=== PATIENT | male | born 1980 | race Caucasian/White ===

== ENCOUNTER 2018-08-18 17:04 | Emergency (ER) | payer SELFPAY ==
[2018-08-18 17:04] VITALS: BP 124/72; PULSE 79; RESP 14; TEMP 36.6; O2SAT 99; BMI 25.0
--- NOTE | 2018-08-18 17:38 | ED.VIS.GEN ---
History of Present Illness Chief Complaint: Dizziness Detail of Chief Complaint: Vertigo Informant: Patient, Family Onset: Today Context: Sudden Onset Timing: Intermittent Quality: Spinning Location: Worse with looking down Current Severity: - - Absent Maximum Severity: Severe Worsened by: Change in head position especially if he leans forward or looks down Relieved by: Remaining still and looking straight ahead Associated Symptoms: Nausea Narrative: Patient is a 37-year-old male who presents with vertigo. Onset 1 hour prior to presentation. The vertigo was positional and transient. It is associated with nausea. He denies headache, double vision, blurred vision or change in vision. He denies trouble with speech or swallowing. Denies paresthesia, anesthesia motors. He has no other complaints Past Medical History - Allergies and Home Meds Allergies/Adverse Reactions: Allergies No Known Allergies Allergy (Verified 08/18/18 17:06) Prior records reviewed: Yes Past Medical History: None Surgical History: no surgical history Lives: Spouse/ Significant Other Smoking Status: Never smoker Alcohol: None, Rare Review of Systems General: Denies: Chills, Fever, Sweats Eyes: Reports: - - There is no papilledema. Cup-to-disc ratio is normal.. Denies: Visual changes - bilaterally, Blurred Vision - bilaterally, Diplopia ENT: Reports: - - He denies tinnitus. Denies: Bilateral ear pain, Rhinorrhea, Sore throat Cardiovascular: Denies: Chest pain, Palpitations Respiratory: Denies: Dyspnea, Cough, Dyspnea on exertion Gastrointestinal: Reports: Nausea Genitourinary: Denies: Dysuria, Hematuria, Frequency Musculoskeletal: Denies: Back pain, Extremity Pain Skin: Denies: Rash, Wounds Neurological: Reports: - - Spending/vertigo Hematologic: Denies: Easy bruising, Easy bleeding Physical Exam Vital Signs/Narrative: Vital Signs Temp Pulse Resp BP Pulse Ox 08/18/18 17:04 97.9 F 79 14 124/72 H 99 Inital Vital Signs reviewed: Yes General: Well nourished, Well developed, No Acute Distress Head: Normocephalic, Atraumatic Eyes: Perrl, EOMI, - - There is no papilledema. Cup-to-disc ratio is normal. There is no nystagmus.. Negative for: Pale conjunctiva, Scleral icterus ENT: Moist mucous membranes, No rhinorrhea. Negative for: TM's clear Neck: Supple, Nontender, No lymphadenopathy, No JVD Cardiovascular: Regular rate, Regular rhythm, No murmurs, Normal S1, Normal S2 Respiratory: No distress, CTA bilaterally, Chest nontender Abdomen: Soft, Nontender, Nondistended, Normal bowel sounds Back: Nontender, Normal Inspection Extremities: Nontender, No edema Skin: Normal color, No rash Neurological: Alert, Oriented x3, Cranial nerves II-XII grossly intact, Normal Strength, Normal Sensation, Normal DTR, - - Finger to nose to finger was performed adequately. The Danika-Hallpike maneuver was negative. The eye askew test was negative. The hint test was negative. Having patient pushed right to left side exacerbate his symptoms. There was mild nystagmus noted. Psychological: Normal affect, Normal Mood Diagnostic/Tx/Re-eval - Medical Decision Making Patient history and physical exam are consistent with benign positional vertigo. Cher maneuver was performed. He had no symptoms with his head to the right or left. There was mild symptoms when he was upright with his neck flexed at 30 degrees. Will reassess in 5-10 minutes. Patient was reassessed at 1810. He still has minor symptoms even after administration of Valium. Plan is to discharge with prescription for Valium 2 mg 3 times daily. ED Disposition - Plan for ED Patient: Disposition: Home or Assisted Living Diagnosis: Benign paroxysmal positional vertigo Instructions: ED BPV Vertigo Prescriptions: Diazepam [Valium] 2 mg PO TID 3 Days #10 tab
[2018-08-18] MEDS: diazePAM 2 MG Tablet PO (18:24)
[2018-08-18 18:33] VITALS: BP 122/76; PULSE 74; RESP 18
== END 2018-08-18 18:34 | disposition home or self-care (01) ==
PROVIDERS: Emergency Provider Emergency Medicine
DX: H81.10 Benign paroxysmal vertigo, unspecified ear (principal)
CPT/HCPCS: 99283

== ENCOUNTER 2020-04-24 04:14 | Emergency (ER) | payer OTHER, SELFPAY ==
[2020-04-24 04:15] VITALS: BP 121/91; PULSE 71; RESP 16; TEMP 36.3; O2SAT 98; BMI 26.8
[2020-04-24] MEDS: Orphenadrine 60 MG/2 ML Ampul IM (04:46)
[2020-04-24] MEDS: Ketorolac 60 MG/2 ML Vial IM (04:46)
--- NOTE | 2020-04-24 04:54 | ED.DCSUM_ITS ---
- ER Visit Summary Date of Service: 04/24/20 Chief Complaint: Left-sided neck and shoulder pain History of Present Illness: The patient is a 39 M presenting with left-sided neck and shoulder pain. Patient states he woke up yesterday morning with pain in the left side of his neck that progressively worsened throughout the day. He states he injured the right side of his neck and shoulder at work last week. He tried ibuprofen and Valium at home. He continues to feel like he has spasm in the left side of his neck. Denies injury or fall. Denies numbness or weakness. Denies fever. Denies other complaints. Physical Examination: Vitals are stable. Patient is afebrile. Alert no acute distress. HEENT exam is unremarkable. Neck is supple. No midline tenderness. Left paraspinal cervical muscle tenderness Lungs are clear and equal bilaterally. Heart is regular rate and rhythm. Abdomen is soft nontender nondistended. Extremities left posterior shoulder tenderness with active full range of motion. Neurovascularly intact distally. Skin is warm and dry. No focal neurologic deficit. Normal strength and sensation Remainder of exam is unremarkable. Emergency Department Course and Treatment: Patient was given Norflex, Toradol IM with some improvement. He was then given OxyIR with improvement of his pain. He is given Dr. Webb biofuels operations manager for no doctor for follow-up. He is advised to follow-up with primary care physician. Advised to return to ED for worsening complaints. Disposition: Discharge home Impression: Neck strain This note was generated with [employer]isten dictation software. It may contain incorrect words, spelling, and punctuation that were not noted in review of the chart prior to signing ED Disposition - Plan for ED Patient: Instructions: ED Sprain Strain Neck Prescriptions: cycloBENZAPRine HCl [Flexeril] 10 mg PO TID PRN #20 tab PRN Reason: Muscle Spasm Prescription Printed Oxycodone HCl/Acetaminophen [Percocet 5/325] 1 tab PO Q6H PRN PRN 3 Days #12 tab PRN Reason: Pain Prescription Printed Referrals: Mickey Webb MD [NON-STAFF] -
[2020-04-24] MEDS: oxyCODONE 5 MG Tablet PO (05:47)
--- NOTE | 2020-04-24 06:32 | ED.DEP ---
ED Disposition - Plan for ED Patient: Instructions: ED Sprain Strain Neck Prescriptions: cycloBENZAPRine HCl [Flexeril] 10 mg PO TID PRN #20 tab PRN Reason: Muscle Spasm Prescription Printed Oxycodone HCl/Acetaminophen [Percocet 5/325] 1 tab PO Q6H PRN PRN 3 Days #12 tab PRN Reason: Pain Prescription Printed Referrals: Mickey Webb MD [NON-STAFF] -
== END 2020-04-24 06:42 | disposition home or self-care (01) ==
PROVIDERS: Emergency Provider Emergency Medicine
DX: S16.1XXA Strain of muscle, fascia and tendon at neck level, initial encounter (principal); X58.XXXA Exposure to other specified factors, initial encounter; Y93.9 Activity, unspecified; Y92.9 Unspecified place or not applicable; Y99.9 Unspecified external cause status; Z72.0 Tobacco use
CPT/HCPCS: 96372; 99283

== ENCOUNTER 2022-04-06 09:49 | Emergency (ER) | payer OTHER, SELFPAY ==
[2022-04-06 09:50] VITALS: BP 168/72; PULSE 103; RESP 18; TEMP 37.7; O2SAT 98; BMI 26.6
--- NOTE | 2022-04-06 10:37 | EDS_ITS ---
HPI History of Present Illness Chief Complaint: Fever Informant: patient Narrative Narrative: Third he 11-year-old male presenting to the emergency department with fever and headache. Patient states that he awoke last night at approximately 010 0 hours with body aches and shivering. Temperature up to 101. He had some dry heaves. He has developed a frontal headache described as a pressure pushing his eyes out. No dental pain. No rhinorrhea or cough. No diarrhea. No rashes. No neck pain. He states that last evening he did have a slight headache and took some ibuprofen but did not think much about it. He notes a coworker has been sick but no one else that he has been around. PFSH PFSH Medical History no medical history no medical history Home Medications NK 04/06/22 [History Last Taken Unknown] Allergy/AdvReac Type Severity Reaction Status Date / Time No Known Allergies Allergy Verified 04/06/22 09:52 Surgical History no surgical history no surgical history Social History Smoking Status: Current every day smoker tobacco type: cigarettes ROS ROS ED Constitutional Constitutional ED: Reports chills and fever(s); Denies weight loss Eyes Eyes: Denies change in vision or diplopia ENT ENT ED: Denies ear pain, rhinorrhea or sore throat Cardiovascular Cardiovascular: Denies chest pain, orthopnea, palpitations or racing heartbeat Respiratory/Chest Respiratory/Chest: Denies cough, dyspnea or orthopnea Gastrointestinal Gastrointestinal: Denies abdominal pain, diarrhea, nausea or vomiting Genitourinary Genitourinary ED: Denies dysuria, hematuria or urinary frequency Musculoskeletal Musculoskeletal: Reports myalgias; Denies arthralgias Integumentary Denies abscess or rash Neurologic Neurologic: Denies headache(s) or weakness Psychiatric Psychiatric: Denies anxiety, depression, suicidal ideation or suicidal thoughts Endocrine Endocrinology: Denies polydipsia, polyphagia or polyuria Allergic/Immunologic Allergic/Immunologic ED: Denies mouth swelling, tongue swelling or urticaria EXAM Physical Exam Const Vital Signs: 04/06/22 09:50 04/06/22 10:01 Temperature 99.9 F H Temperature Source Temporal Pulse Rate 103 H Respiratory Rate 18 Respiratory Pattern Normal Blood Pressure 168/72 H Blood Pressure Mean 104 Pulse Ox 98 Oxygen Delivery Method Room Air Positive well nourished and well developed General Appearance ED: well developed HEENT Reports normocephalic, head/scalp atraumatic and moist mucous membranes Eyes PERRL and EOMs intact bilaterally Neck no lymphadenopathy, supple and no JVD Resp normal respiratory effort and clear to auscultation bilaterally Cardio regular rate, regular rhythm and no murmurs GI normal to inspection, nondistended, normoactive bowel sounds and non-tender Palpation: soft Back/Spine no CVA tenderness and normal ROM Extremity normal to inspection General Extremety ED: Negative for edema General Extremity: Negative for edema Neuro oriented x3 and CN's II-XII intact bilaterally Sensorium / Orientation: alert Motor Exam: strength 5/5 throughout Psych mental status grossly normal Mood & Affect: Negative for depressed or tearful Skin no rashes or lesions noted and no wounds MDM MDM MDM Narrative Medical decision making narrative: My interpretation of the chest x-ray is no acute process. Influenza and COVID were negative. He received a dose of ibuprofen. Clinically the patient appears well. I believe he has a viral syndrome and should recover well from this. I can write him some pain medication for his headache would recommend follow-up as needed return if worsening or concerns Radiography Diagnostic Testing: Clinical Impression(s) from Imaging Studies Chest X-Ray 04/06/22 11:15 IMPRESSION: Normal x-ray examination of the chest. Electronically Signed: Maycol Joseph MD at 11:23 EST Reading Location ID and State: [facility] / [place] , Service support , Discharge Plan Triage Chief Complaint: Fever ED Provider: Dominick Hammer Dx/Rx/DC Orders Prescriptions: No Action NK Primary Care Provider: Care Physician,No Primary Referrals: Care Physician,No Primary [Primary Care Provider] -
[2022-04-06] MEDS: Ibuprofen 400 MG Tablet 800 MG PO (10:48)
--- NOTE | 2022-04-06 11:15 | RAD_ITS ---
STUDY: X-RAY CHEST REASON FOR EXAM: Male, 41 years old. Fever TECHNIQUE: Single AP portable view of the chest. COMPARISON: None. FINDINGS: The lungs are clear and expanded. There is no demonstrated pleural abnormality. Normal size heart. Normal mediastinum and loida. Normal visualized pulmonary arteries. Normal visualized aortic arch and descending thoracic aorta. Normal visualized thoracic spine. Normal visualized ribs, clavicles, and shoulders. There is no demonstrated abnormality of the visualized soft tissue structures of the upper abdomen. RAD/Chest 1 View (Portable) IMPRESSION: Normal x-ray examination of the chest. Electronically Signed: Maycol Joseph MD at 11:23 EST ,
== END 2022-04-06 12:27 | disposition home or self-care (01) ==
PROVIDERS: Emergency Provider Emergency Medicine; Visit Provider Emergency Medicine
DX: R50.9 Fever, unspecified (principal); R51.9 Headache, unspecified; M79.10 Myalgia, unspecified site; F17.210 Nicotine dependence, cigarettes, uncomplicated; Z20.822 Contact with and (suspected) exposure to COVID-19
CPT/HCPCS: 71045; 87428; 99282

== ENCOUNTER 2024-07-06 10:27 | Emergency (ER) | payer OTHER, SELFPAY ==
[2024-07-06 10:28] VITALS: BP 118/83; PULSE 80; RESP 16; TEMP 35.7; O2SAT 100
--- NOTE | 2024-07-06 10:47 | EX.ED.VIS.EY ---
HPI History of Present Illness Chief Complaint: Eye Problem Detail of Chief Complaint: Foreign body sensation in right eye since . Informant: patient Onset/Context/Timing Location: Right Eye Onset: Days Context: Sudden Onset Timing: Continuous Current Severity: Moderate Maximum Severity: Moderate Associated Symptoms Associated Symptoms - Eyes: Pain, Redness and - (Watering.) History of injury: Yes, Foreign body and Grinding injury Visual correction: Glasses Narrative Narrative: Healthy 43-year-old male with glasses no contacts. No prior eye surgery. He was grinding metal and he said a piece bounced off his nose underneath his glasses and went in his eye believes on . This is not Worker's Comp. Today had discomfort and foreign body sensation since then. Had his try to wash out his eye without significant relief. Prior similar symptoms: No Recent Illness/Hospitalization: No PFSH PFSH Medical History no medical history no medical history Home Medications ?Medication ?Instructions ?Recorded ?Last Taken ?Type hydrocodone-acetaminophen 5-325mg 1 tab PO Q6H PRN PRN Pain 3 days 04/06/22 Unknown Rx 5mg-325mg #10 TABLETS Allergy/AdvReac Type Severity Reaction Status Date / Time No Known Allergies Allergy Verified 07/06/24 10:28 Surgical History no surgical history no surgical history Social History Smoking Status: Current every day smoker tobacco type: cigarettes ROS ROS ED ROS Narrative Denies recent illness. Constitutional Constitutional ED: Denies fever(s) ENT ENT ED: Denies ear pain Cardiovascular Cardiovascular: Denies chest pain Respiratory/Chest Respiratory/Chest: Denies cough or dyspnea Gastrointestinal Gastrointestinal: Denies abdominal pain Genitourinary Genitourinary ED: Denies dysuria or hematuria Musculoskeletal Musculoskeletal: Denies arthralgias or back pain Integumentary Denies abscess or Abrasions Neurologic Neurologic: Denies headache(s) Psychiatric Psychiatric: Denies anxiety or depression Endocrine Endocrinology: Denies polydipsia or polyphagia Hematologic/Lymphatic Hematologic/Lymphatic: Denies easy bleeding or easy bruising Allergic/Immunologic Allergic/Immunologic ED: Denies mouth swelling or tongue swelling EXAM Physical Exam Narrative Exam Narrative: Well-appearing 43-year-old male. Accompanied by his and daughter. Vital signs are stable afebrile. H EENT exam pupils round react light. Extra motions are intact. Right eyes injected and watering. No discharge. No orbital or periorbital cellulitis. No swelling. There does appear to be a foreign body just outside the pupil medially at about 2:00. Extraocular motions are intact bilaterally. No preauricular lymphadenopathy. Otherwise the face is unremarkable. Lungs clear. Heart regular rhythm. Abdomen soft. Otherwise exam unremarkable. Const Vital Signs: 07/06/24 10:28 Temperature 96.3 F L Temperature Source Temporal Pulse Rate 80 Respiratory Rate 16 Blood Pressure 118/83 H Blood Pressure Mean 94 Pulse Ox 100 Oxygen Delivery Method Room Air Positive well nourished and well developed; Negative for obese, cachectic, contractures or unkempt General Appearance ED: well developed and NAD; Negative for unkempt, cachectic or contractures Nutritional Appearance: Negative for cachectic or obese HEENT atraumatic; Negative for trauma or tenderness Eyes Eyes Narrative: Injected right eye. Watering. No discharge. Foreign body approximately 2:00 just outside the pupil. Red and injected. Neck no lymphadenopathy, supple and no JVD Resp normal respiratory effort, no retractions, no use of accessory muscles and clear to auscultation bilaterally Cardio regular rate, regular rhythm, S1 normal heart sound, S2 normal heart sound and no murmurs GI non-tender, non-distended and no masses Back/Spine no CVA tenderness Extremity normal to inspection Neuro oriented x3, CN's II-XII intact bilaterally and moves all extremities Sensorium / Orientation: alert, oriented to person, oriented to place and oriented to time Motor Exam: strength 5/5 throughout Psych Appearance: Negative for unkempt Mood & Affect: Negative for depressed, anxious or tearful Skin no wounds Lesions: no lesions Rashes: no rashes Image ED - Eye Diagram:  1. Right eye foreign body about 2:00 just outside the pupil. Red and injected. Watering. MDM MDM MDM Narrative Medical decision making narrative: Healthy 43-year-old male wears glasses not contacts right eye foreign body. Tetracaine will be instilled we will try to remove it. It has been in 2 to 3 days now. Tetracaine was instilled in his right eye gave him great relief. Then fluorescein. He could easily see the foreign body at 2:00. I was able to remove it with a wet Q-tip. I believe I got all of it. He came off in 2 pieces. Again slit-lamp exam in his eye and it appeared to be removed with an irregularity of the cornea where he had injured it. Bacitracin twice a day. Tylenol Motrin for pain. Sunglasses prevent glare. Follow-up with ophthalmology if not improving. History & Record Review Discussion w/independent historian: Patient Discharge Plan Triage Chief Complaint: Eye Problem ED Provider: Zay Duvall Dx/Rx/DC Orders Clinical Impression: Acute foreign body of cornea, Abrasion, corneal Instructions: ED Corneal Abrasion, ED Corneal Foreign Body, Removed Prescriptions: No Action hydrocodone-acetaminophen [hydrocodone-acetaminophen] 5-325 mg tablet 1 tab PO Q6H PRN PRN (Reason: Pain) 3 Days Qty: 10 0RF Primary Care Provider: Care Physician,No Primary Referrals: Dania Puente MD [Med Staff - Active Staff] - 3-5 Days if not improving Care Physician,No Primary [Primary Care Provider] - Activity Restrictions/Additional Instructions: Foreign body right eye about 2:00. I was able to get it out. There still is a corneal abrasion or injury there to the cornea. That will take several days to heal. Use the eye ointment which is an antibiotic twice a day to prevent infection and also help lubricate your eye. Put in in the morning and evening. Till gone. You can use the eyedrops that I used to numb URI every 2-4 hours as needed for the next 24 hours. After tomorrow evening you can continue to use it because it can retard healing. This should progressively improve if not follow-up with the eye doctor. Sunglasses to prevent glare. Tylenol Motrin for pain. Print Language: Polish Disposition Disposition: Home, Self Care
[2024-07-06] MEDS: Fluorescein 1 MG STRIP 1 STRIP RIGHT EYE (11:12)
[2024-07-06] MEDS: Tetracaine 0.5% Ophthalmic Bottle 1 DRP RIGHT EYE (11:13)
[2024-07-06] MEDS: Bacitracin/Polymin B Sulfate 3.5 GM OPTH.TUBE 1 APPLIC RIGHT EYE (11:32)
== END 2024-07-06 11:38 | disposition home or self-care (01) ==
PROVIDERS: Emergency Provider Emergency Medicine; Visit Provider Emergency Medicine
DX: S05.01XA Injury of conjunctiva and corneal abrasion without foreign body, right eye, initial encounter (principal); X58.XXXA Exposure to other specified factors, initial encounter; F17.210 Nicotine dependence, cigarettes, uncomplicated
CPT/HCPCS: 99282